=== PATIENT | female | born 1960 | race Caucasian/White ===

== ENCOUNTER 2025-02-08 00:41 | Outpatient (CLI) | payer MEDICAID, SELFPAY ==
--- NOTE | 2025-02-08 09:06 | DI.RAD_ITS ---
Exam(s) XR FOOT LT COMPLETE EXAM: XR FOOT LT COMPLETE CLINICAL HISTORY: L FOOT PAIN, M79.672. TECHNIQUE: 2D digital imaging was performed. Three views. COMPARISON: No exams were available for comparison FINDINGS: BONES: No acute fracture is present. No bony destructive lesion is seen. Tiny enthesophyte at the Achilles insertion on the calcaneus. JOINTS: No dislocation present. No significant degenerative changes. Plantar arch is maintained. SOFT TISSUE: Normal. IMPRESSION: Unremarkable radiographs of the left foot. DATA REPOSITORY: RADIATION DOSE DELIVERED:
== END 2025-02-08 01:01 ==
PROVIDERS: Visit Provider Podiatrist
DX: M79.672 Pain in left foot (principal)
CPT/HCPCS: 73630

== ENCOUNTER 2025-04-03 11:33 | Outpatient (CLI) | payer OTHER, SELFPAY ==
--- NOTE | 2025-04-03 09:58 | DI.RAD_ITS ---
Exam(s) XR SHOULDER LT COMPLETE 2+V EXAM: XR SHOULDER LT COMPLETE 2+V CLINICAL HISTORY: LEFT SHOULDER PAIN. TECHNIQUE: 2D digital imaging was performed. Two views. COMPARISON: No exams were available for comparison FINDINGS: BONES: No acute fracture is present. No bony destructive lesion is seen. JOINTS: No dislocation present. No significant spurring at the AC joint or glenohumeral joint. Glenohumeral joint space is maintained. SOFT TISSUE: Normal. IMPRESSION: Unremarkable radiographs of the left shoulder. DATA REPOSITORY: RADIATION DOSE DELIVERED:
== END 2025-04-03 11:34 | disposition home or self-care (01) ==
LOC: DIORS 11:33
PROVIDERS: PCP Family Medicine; Visit Provider Student in an Organized Health Care Education/Training Program
DX: M25.512 Pain in left shoulder (principal)
CPT/HCPCS: 73030

== ENCOUNTER 2025-04-20 00:37 | Outpatient (CLI) | payer OTHER, SELFPAY ==
--- NOTE | 2025-04-20 13:25 | DI.MRI_ITS ---
Exam(s) MR UPPER JOINT LT WO EXAM: MR UPPER JOINT LT WO CLINICAL HISTORY: L SHOULDER PAIN,lt rotator cuff tear,m75.102 TECHNIQUE: Multiplanar multisequence MRI of the shoulder was performed. COMPARISON: CR XR SHOULDER LT COMPLETE 2+V from 04/03/2025 FINDINGS: MARROW:There is no evidence of fracture, Hill-Sachs deformity, nor ominous osseous lesions. GLENOHUMERAL JOINT: No joint effusion nor obvious loose intra-articular bodies. No chondral defects. No osteophytes. No degenerative subarticular cysts. ROTATOR CUFF MECHANISM: AC JOINT/ACROMIUM: There are minimal if any significant degenerative changes in the AC joint. There does not appear to be impingement at this level.. There is no evidence of os acromiale. Supraspinatus: There is a small area of significant signal abnormality in the supraspinatus tendon at the foot pad insertion site which has the appearance of a focal partial thickness articular side tear. There is a small amount of fluid in the subacromial-subdeltoid bursa. There is also tendinitis signal in the tendon at this level. There is no retraction of the musculotendinous junction. No atrophy of the muscle belly. Infraspinatus: Intact. No evidence of tear nor muscle atrophy. Teres Minor: Intact. No evidence of tear nor muscle atrophy. Subscapularis/anterior cuff: There is a small area of signal abnormality in the posterior aspect of the multipennate insertional fibers of the subscapularis tendon, best seen on the axial fat sat PD sequence adjacent to the lesser tuberosity. There does not appear to be a significant tear evident at this level on the other sequences. BICEPS TENDON: Exhibits normal position within the intertubercular groove. No evidence of tear. LABRUM: No evidence of paralabral cysts. There is mild increased signal in the superior labrum posterior to the biceps insertion common this subtle signal at the junction of the labrum and osseous glenoid. Possibly within normal limits. There is no tear of the posterior labrum. There is some signal abnormality in the anterior labrum consistent with tearing. There is no abnormal intraosseous signal to suggest osseous Bankart lesion. QUADRILATERAL SPACE: No evidence of mass in the region of the axillary nerve and dorsal circumflex humeral vessels. Visualized triceps muscle at this level appears unremarkable. IMPRESSION: 1. Findings in the supraspinatus tendon consistent with partial-thickness tearing on the articular side at the foot pad insertion site. There is a sliver of fluid evident in the subacromial-subdeltoid bursa which may represent mild accompanying bursitis or possibly related to the fact that this may represent a small full-thickness tear at this level. There is no retraction musculotendinous junction. There is no evidence of tear in the infraspinatus. 2. There appears to be evidence of anterior labral tearing. No evidence of bony Bankart lesion. 3. No evidence of tear nor displacement of the biceps tendon DATA REPOSITORY:
== END 2025-04-20 00:57 ==
LOC: DI 00:37
PROVIDERS: PCP Family Medicine; Visit Provider Student in an Organized Health Care Education/Training Program
DX: M75.122 Complete rotator cuff tear or rupture of left shoulder, not specified as traumatic (principal)
CPT/HCPCS: 73221